=== PATIENT | female | born 1955 | race Caucasian/White ===

== ENCOUNTER 2019-11-22 06:54 | Outpatient (NON) | payer OTHER, SELFPAY ==
[2019-11-22 18:24] LABS: SARS-CoV-2 RNA PCR Negative
== END 2019-11-22 06:55 ==
PROVIDERS: PCP Family Medicine; Visit Provider Physician Assistant Medical
DX: Z20.828 Contact with and (suspected) exposure to other viral communicable diseases (principal)
CPT/HCPCS: 87635; C9803; U0003

== ENCOUNTER 2020-01-16 16:42 | Outpatient (CLI) | payer OTHER, SELFPAY ==
--- NOTE | ~2020-01-16 | MM_ITS ---
EXAMINATION: MM screening sulma BI w lan HISTORY: Screening mammogram TECHNIQUE: Craniocaudal and mediolateral oblique 3-D tomosynthesis images were obtained and synthetic 2-D images were generated. CAD analysis was submitted and interpreted. COMPARISON: 01/06/2019, 05/09/2016, 01/03/2015 bilateral digital screening mammogram examinations BREAST PARENCHYMAL COMPOSITION: There are scattered areas of fibroglandular density. FINDINGS: Stable mild fibroglandular asymmetry. There is no evidence of suspicious mass, calcificatio n, or architectural distortion to suggest malignancy in either breast. There has been no suspicious i nterval change. IMPRESSION: 1. No mammographic evidence of malignancy. 2. Recommend routine screening mammography in one year. BI-RADS Category 2: Benign finding(s). Reviewed, dictated and finalized at location A. INSPECTOR
== END 2020-01-16 16:43 | disposition home or self-care (01) ==
LOC: ANHIMG 16:45
PROVIDERS: PCP Family Medicine; Visit Provider Family Medicine
DX: Z12.31 Encounter for screening mammogram for malignant neoplasm of breast (principal)
CPT/HCPCS: 77063; 77067

== ENCOUNTER 2021-03-19 13:37 | Emergency (ER) | payer OTHER, SELFPAY ==
--- NOTE | ~2021-03-19 | CT_ITS ---
EXAMINATION: CT brain wo con DATE: 03/19/2021 16:46 INDICATION: Syncope. TECHNIQUE: Computed tomography (CT) of the head was performed without intravenous contrast. The mA wa s adjusted according to patient size. Iterative reconstruction technique was employed. The dose-lengt h product was 605.33 mGy-cm. COMPARISON: None FINDINGS: There is no intracranial hemorrhage, acute infarction, or abnormal intracranial mass lesion . The ventricles are normal in size. There is mild mucosal thickening in the paranasal sinuses. 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 There are small bilateral mastoid effusions. The orbits ar e normal. IMPRESSION: 1. Normal brain. Reviewed, dictated and finalized at location A. EL APPLIER IMPRESSION: 1. Normal brain.
--- NOTE | 2021-03-19 14:06 | ED.DIZZY ---
HPI - Dizziness General Chief Complaint: Dizziness Stated Complaint: VERTIGO Time Seen by Provider: 03/19/21 15:19 Source: patient Mode of arrival: ambulatory Limitations: no limitations History of Present Illness HPI Narrative: 55-year-old woman whose will comes to the emergency department complaining of vertiginous symptoms that started yesterday. She states that she was lying in a dentist's chair when her initial episode happened. She states that since then if she lies perfectly still her symptoms improved but get worse when she moves her head. She was seen at her primary care doctor's office today where head maneuvers to improve vertigo were done. Shortly afterwards she stood, began to have shaking in her hands, and passed out, falling to the floor. She was placed back on the bed and woke up shortly thereafter returning to normal sensorium quickly. She had urine incontinence. MD elicited complaint: dizziness and disequilibrium Onset (ago): day(s) (1) Timing: sudden onset and intermittent Severity: severe Description: sense of movement and room spinning Context: change in body position History of similar symptoms: No Exacerbating factors: movement/ambulation and change in body position Relieving factors: remaining still Associated symptoms: nausea and other (Headache) Associated neuro symptoms: diplopia Related Data Home Medications Medication Instructions Recorded Confirmed levothyroxine 50 mcg PO DAILY 03/19/21 03/19/21 Allergies Allergy/AdvReac Type Severity Reaction Status Date / Time No Known Allergies Allergy Mild Verified 03/19/21 14:19 Review of Systems Review of Systems: All systems reviewed & are unremarkable except as noted in HPI and below Constitutional: Constitutional: Denies chills and Denies fever(s) Eyes: Eyes: Reports change in vision (Intermittent diplopia) and Denies photophobia ENT: Denies nasal congestion and Denies sore throat Cardiovascular: Cardiovascular: Denies chest pain, Denies rapid heart rate and Denies radiating jaw, neck or arm pain Respiratory: Respiratory: Denies cough, Denies dyspnea and Denies wheezing Gastrointestinal: Gastrointestinal: Denies abdominal pain, Denies diarrhea, Reports nausea and Denies vomiting Genitourinary: Genitourinary: Denies hematuria, Denies nocturia and Denies dysuria Musculoskeletal: Musculoskeletal: Denies back pain, Denies arthralgias and Denies joint swelling Integumentary/Breasts: Skin/Breast: Denies pruritus, Denies erythema and Denies rash Neurologic: Denies confusion, Reports vertigo, Reports dizziness, Denies syncope, Reports headache(s), Denies focal weakness, Denies numbness and Denies weakness Hematologic/Lymphatic: Hematologic/Lymphatic: Denies easy bleeding and Denies easy bruising [facility] Past Medical History Medical History (Updated 03/19/21 @ 17:07 by Martinez Bhatia MD) Iliotibial band syndrome of right side Peroneal tendinitis of left lower extremity Sciatica, right side Spinal stenosis, unspecified region other than cervical Surgical History Surgical History (Updated 03/19/21 @ 17:04 by Martinez Bhatia MD) H/O cervical spine surgery Hx of colonoscopy 5 negative. repeat in 5 years Family History Family History Father Family history of congestive heart failure Carcinoma of colon, Onset Age: 80 Grandparent Diabetes mellitus Family history of glaucoma Mother Patient's mother is Social History Social History Smoking status: Former smoker Smoking end date: 02/23/88 Alcohol intake: current Exam Const: General: healthy appearing and alert Orientation/consciousness: patient oriented x3 Limitations: no limitations Other: Mild acute distress. HENMT: Head: normal to inspection Ears: TM's normal bilaterally, EAC's normal and external ear abnormal
[2021-03-19 14:20] VITALS: BP 146/95; PULSE 66; RESP 16; TEMP 36.2; O2SAT 100
[2021-03-19] MEDS: SODIUM CHLORIDE 0.9% IV 1,000 ML 999 ML IV CONT (15:46)
[2021-03-19] MEDS: ONDANSETRON INJ 4 MG/2 ML VIAL IV PUSH (15:47)
[2021-03-19 15:54] LABS: Basophils Absolute Auto 0.03 K/mm3 (0.00-0.10); Basophils Percent Auto 0.3 % (0.0-1.0); Eosinophils Absolute Auto 0.03 K/mm3 (0.02-0.50); Eosinophils Percent Auto 0.3 % (1.0-6.0); Hematocrit 43.2 % (35.0-49.0); Hemoglobin 14.3 g/dL (12.0-15.0); Immature Granulocyte Absolute 0.03 K/mm3 (0.00-0.00); Immature Granulocyte Percent A 0.3 % (0.0-0.0); Lymphocytes Absolute Auto 1.19 K/mm3 (1.10-4.50); Lymphocytes Percent Auto 13.7 % (18.0-42.0); Mean Corpuscular HGB Conc 33.1 g/dL (32.0-36.0); Mean Corpuscular Volume 90.6 fL (78.0-102.0); Mean Platelet Volume 8.8 fl (9.2-11.8); Monocytes Absolute Auto 0.46 K/mm3 (0.10-0.90); Monocytes Percent Auto 5.3 % (2.0-11.0); Neutrophils Absolute Auto 6.9 K/mm3 (1.7-7.2); Neutrophils Percent Auto 80.1 % (50.0-70.0); Platelet Count Result 259 K/mm3 (150-420); Red Blood Count 4.77 M/mm3 (4.20-5.40); Red Cell Distribution Width 11.9 % (11.6-14.4); White Blood Count 8.7 K/mm3 (4.8-10.8)
[2021-03-19 16:09] LABS: Alanine Aminotransferase 21 U/L (14-59); Albumin Level 4.1 g/dL (3.4-5.0); Alkaline Phosphatase 49 U/L (46-116); Anion Gap 8 mmol/L (8-16); Aspartate Amino Transferase 13 U/L (15-37); Bilirubin,Total 0.4 mg/dL (0.00-1.00); Blood Urea Nitrogen 11 mg/dL (7-18); Calcium 9.4 mg/dL (8.5-10.1); Carbon Dioxide 29 mmol/L (21-32); Chloride 103 mmol/L (98-108); Estimated CRCL calculation 72 ml/min; Estimated Glomerular Filt Rate > 60; Glucose 121 mg/dL (70-99); Magnesium 2.1 mg/dL (1.8-2.4); Osmolality Calculated 290 mOsm/kg (285-295); Sodium 140 mmol/L (136-145); Total Protein 7.5 g/dL (6.4-8.2)
[2021-03-19 17:52] VITALS: BP 147/87; PULSE 70; RESP 16; O2SAT 97
== END 2021-03-19 17:53 | disposition home or self-care (01) ==
PROVIDERS: Emergency Provider Emergency Medicine; PCP Family Medicine
DX: R42 Dizziness and giddiness (principal)
CPT/HCPCS: 36415; 70450; 80053; 83735; 85025; 96361; 96374; 99283; 99284; J2405; J7030

== ENCOUNTER 2022-12-18 14:17 | Outpatient (CLI) | payer BC, SELFPAY ==
--- NOTE | ~2022-12-18 | MM_ITS ---
EXAMINATION: MM screening sulma BI w lan HISTORY: Screening mammogram TECHNIQUE: Craniocaudal and mediolateral oblique 3-D tomosynthesis images were obtained and synthetic 2-D images were generated. CAD analysis was submitted and interpreted. COMPARISON: 01/12/2020, 01/06/2019 bilateral screening mammogram examinations BREAST PARENCHYMAL COMPOSITION: There are scattered areas of fibroglandular density. FINDINGS: There is no evidence of suspicious mass, calcification, or architectural distortion to sugg est malignancy in either breast. There has been no suspicious interval change. IMPRESSION: 1. No mammographic evidence of malignancy. 2. Recommend routine screening mammography in one year. BI-RADS Category 1: Negative Reviewed, dictated and finalized at location A.
== END 2022-12-18 14:18 | disposition home or self-care (01) ==
LOC: ANHIMG 14:21
PROVIDERS: PCP Family Medicine; Visit Provider Family Medicine
DX: Z12.31 Encounter for screening mammogram for malignant neoplasm of breast (principal)
CPT/HCPCS: 77063; 77067

== ENCOUNTER 2023-02-09 17:12 | Emergency (ER) | payer BC, SELFPAY ==
[2023-02-09 17:18] VITALS: BP 154/94; PULSE 81; RESP 16; TEMP 36.6; O2SAT 100
--- NOTE | 2023-02-09 17:24 | ED.GENADULT ---
HPI - General Adult General Chief complaint: Syncope Stated complaint: Fainted;Seizure; Time Seen by Provider: 02/09/23 17:25 Source: patient, RN notes reviewed and old records reviewed Mode of arrival: ambulatory Limitations: no limitations History of Present Illness HPI narrative: 67-year-old female presents to the [facility] with feeling of about to pass out or have a seizure. Had an episode last week where she did pass out when she was out with friends and had seizure-like activity, EMS was called but they declined transport at that time. Has a history of vertigo. Nov of this year Reports Dr. Simon tried to do a maneuver and she had a seizure, transproted to the ER at that time. Has gone to physical therapy at [facility] for vertigo. Patient states that tonight she got dizzy, after feeling dizzy developed numbness in her upper extremities. Patient reports this time it feels different due to the numbness in her arms Treatments prior to arrival: none Related Data Allergies Allergy/AdvReac Type Severity Reaction Status Date / Time No Known Allergies Allergy Mild Verified 10/15/22 14:32 Review of Systems Review of Systems: All systems reviewed & are unremarkable except as noted in HPI and below Constitutional: Constitutional: Reports no additional constitutional complaints Eyes: Eyes: Reports no additional eye complaints ENT: Reports system reviewed and no additional complaints, except as documented Cardiovascular: Cardiovascular: Reports no additional cardiovascular complaints, Denies chest pain and Denies dyspnea Respiratory: Respiratory: Reports no additional respiratory complaints, Denies chest congestion, Denies cough and Denies dyspnea Gastrointestinal: Gastrointestinal: Reports no additional gastrointestinal complaints, Denies abdominal pain, Denies nausea and Denies vomiting Musculoskeletal: Musculoskeletal: Reports no additional musculoskeletal complaints Integumentary/Breasts: Skin/Breast: Reports system reviewed and no additional complaints, except as docu Neurologic: Reports as per HPI, Reports vertigo, Reports dizziness, Reports syncope (Near syncopal), Reports seizure-like activity (Last week), Reports tingling (Bilateral arms, decreased sensation) and Denies weakness Psychiatric: Psychiatric: Reports no additional psychiatric complaints Allergic/Immunologic: Allergic/Immunologic: Reports no additional allergic/immunologic complaints PMFSH Past Medical History Medical History Iliotibial band syndrome of right side Olecranon bursitis of right elbow Peroneal tendinitis of left lower extremity Sciatica, right side Surgical History Surgical History H/O cervical spine surgery Hx of colonoscopy 5 negative. repeat in 5 years Family History Family History Father Family history of congestive heart failure Carcinoma of colon, Onset Age: 80 Grandparent Diabetes mellitus Family history of glaucoma Mother Patient's mother is Social History Social History Smoking packs per day: 0.1 Smoking cigarettes per day: 2.0 Years smoked: 8 Smoking pack-years: 0.80 Smoking status: Former smoker Smoking end date: 02/23/88 Alcohol intake: current Substance use: never Substance use type: does not use Lack of Transportation: No Lack of Food: Never True Current Housing: I Have Housing Concerned About Future Housing: No Difficulty Paying Gas/Electric Bills: No Difficulty Paying for Meds: No Currently Unemployed: No Education: Master's Degree or Higher Difficulty w/ Childcare or Family Care: No Comments At the time of my signature, I reviewed and agree with the nursing past medical, surgical, social, and family history. There is no relevan
== END 2023-02-09 17:46 | disposition short-term general hospital (02) ==
LOC: EXPGOSH 17:14
PROVIDERS: Emergency Provider Nurse Practitioner; PCP Family Medicine
DX: R42 Dizziness and giddiness (principal); Z87.891 Personal history of nicotine dependence
CPT/HCPCS: 99215; G0463

== ENCOUNTER 2023-02-09 18:11 | Emergency (ER) | payer BC, SELFPAY ==
[2023-02-09] VITALS (11 sets, daily range): BP systolic 92–153; BP diastolic 73–99; PULSE 64–85; RESP 17–24; TEMP 36.4; O2SAT 99–100
--- NOTE | ~2023-02-09 | CT_ITS ---
EXAMINATION: CT brain wo con DATE: 02/09/2023 20:54 INDICATION: Syncope. TECHNIQUE: Computed tomography (CT) of the head was performed without intravenous contrast. The mA wa s adjusted according to patient size. Iterative reconstruction technique was employed. The dose-lengt h product was 605.33 mGy-cm. COMPARISON: Head CT 03/19/2021 FINDINGS: There is no intracranial hemorrhage, acute infarction, or abnormal intracranial mass lesion . The ventricles are normal in size. There is mild mucosal thickening in the paranasal sinuses. There is a small left mastoid effusion. IMPRESSION: 1. Normal brain. Reviewed, dictated and finalized at location E. L MANAGER IMPRESSION: 1. Normal brain.
--- NOTE | ~2023-02-09 | XR_ITS ---
EXAMINATION: XR chest 1V portable DATE: 02/09/2023 21:17 INDICATION: Syncope. Nausea. TECHNIQUE: A single frontal view of the chest was obtained. COMPARISON: None. FINDINGS: There is no pneumonia, pleural effusion, or pneumothorax. The heart size is normal. There a re changes of anterior fusion procedure in cervical spine. IMPRESSION: 1. No acute cardiopulmonary disease. Reviewed, dictated and finalized at location E. GER INTERNET
--- NOTE | 2023-02-09 20:34 | ECG_ITS ---
Measurements Intervals [place] Rate: 71 P: 41 RI: 151 QRS: 23 QRSD: 93 T: 31 QT: 369 QTc: 404 Interpretive Statements SINUS RHYTHM BASELINE ARTIFACT POSSIBLE LEFT ATRIAL ENLARGEMENT [-0.1mV P WAVE IN V1/V2] BORDERLINE ECG NO PREVIOUS ECG AVAILABLE FOR COMPARISON Electronically Signed On 02-10-2023 15:32:53 SCIENTIFIC ILLUSTRATOR by Quinton Nunez M.D.
[2023-02-09 21:33] LABS: Basophils Percent Auto 0.4 % (0.2-1.2); Eosinophils Absolute Auto 0.1 K/mm3 (0-0.3); Eosinophils Percent Auto 0.8 % (0-4.4); Hematocrit 37.5 % (37.0-47.0); Hemoglobin 12.5 g/dL (12.0-15.0); Immature Granulocyte Absolute 0.02 K/mm3 (0.00-0.031); Immature Granulocyte Percent A 0.3 % (0-0.5); Lymphocytes Absolute Auto 1.82 K/mm3 (0.9-3.2); Lymphocytes Percent Auto 22.8 % (18.3-44.2); Mean Corpuscular HGB Conc 33.3 g/dl (32-36); Mean Corpuscular Hemoglobin 29.5 pg (26-34); Mean Corpuscular Volume 88.4 fl (80-100); Mean Platelet Volume 8.9 fl (7.4-10.4); Monocytes Absolute Auto 0.5 K/mm3 (0.1-0.6); Monocytes Percent Auto 5.8 % (2.6-8.5); Neutrophils Absolute Auto 5.6 K/mm3 (1.3-6.7); Neutrophils Percent Auto 69.9 % (45.5-73.1); Platelet Count Result 264 k/mm3 (150-375); Red Blood Count 4.24 M/mm3 (4.2-5.4); Red Cell Distribution Width 11.6 % (11.5-14.5)
--- NOTE | 2023-02-09 21:36 | ECG_ITS ---
Measurements Intervals [place] Rate: 67 P: 38 WV: 156 QRS: 32 QRSD: 86 T: 34 QT: 395 QTc: 419 Interpretive Statements SINUS RHYTHM BASELINE ARTIFACT POSSIBLE LEFT ATRIAL ENLARGEMENT [-0.1mV P WAVE IN V1/V2] BORDERLINE ECG COMPARED TO ECG 02/09/2023 17:35:35 NO SIGNIFICANT CHANGES Electronically Signed On 02-10-2023 15:38:08 WOOD EXPERIMENTAL MECHANIC by Quinton Nunez M.D.
[2023-02-09 21:42] LABS: Alanine Aminotransferase 15 U/L (6-35); Albumin Level 4.1 g/dL (3.5-5.1); Alkaline Phosphatase 54 U/L (38-126); Anion Gap 8 mmol/L (8-16); Aspartate Amino Transferase 22 U/L (14-36); Bilirubin,Total 0.4 mg/dL (0.2-1.3); Blood Urea Nitrogen 13 mg/dL (7-17); Calcium 9.4 mg/dL (8.4-10.2); Carbon Dioxide 26 mmol/L (22-30); Chloride 105 mmol/L (98-107); Estimated CRCL calculation 93 ml/min; Estimated Glomerular Filt Rate > 60; Glucose 107 mg/dL (65-110); Potassium 4.2 mmol/L (3.4-5.0); Prothrombin Time 13.5 Seconds (11.1-14.7); Sodium 139 mmol/L (137-145)
[2023-02-09 21:43] LABS: Partial Thromboplastin Time 23.2 SECONDS (22.3-36.8)
[2023-02-09 21:46] LABS: Lactic Acid Reflex 0.9 mmol/L (0.7-2.0)
[2023-02-09 21:50] LABS: Appearance Urine Clear (Clear); Bacteria Urine None Seen /hpf; Bilirubin Urine Negative (Negative); Blood Urine Negative (Negative); Color Urine Yellow (Yellow); Glucose Urine UA Negative (Negative); Ketones Urine Negative (Negative); Leukocyte Esterase Ur 2+ LEU/UL (Negative); Nitrate Urine Negative (Negative); Non Pathogenic Casts 0-2; Protein Urine Negative (Negative); RBC Urine 0-2 /hpf (0-2); Specific Grav Ur 1.003 (1.001-1.035); Squamous Epithelial Cell Urine None seen /hpf (Few); Urobilinogen Urine 0.2 mg/dL (<2.0)
[2023-02-09 21:51] LABS: Troponin I < 0.012 ng/mL (0.000-0.034)
[2023-02-09 21:51] LABS: Add Urine Microscopic? YES
[2023-02-09 21:54] LABS: D Dimer 0.36 ug/mL (<0.48)
[2023-02-09] MEDS: SODIUM CHLORIDE 0.9% IV 1,000 ML 999 ML IV CONT (21:56)
--- NOTE | 2023-02-09 22:30 | ED.GENADULT ---
HPI - General Adult General Chief complaint: Syncope Stated complaint: syncope Time Seen by Provider: 02/09/23 20:22 History of Present Illness HPI narrative: patient is a 67-year-old female who presents to emergency department with chief complaint of syncopal episode. The patient reports that she had an episode last week while she was with her friends eating dinner the patient reports that today she started feeling tingly and felt as though she was going to pass out felt lightheaded. Patient denies chest pain denies actually passing out today denies abdominal pain Related Data Allergies Allergy/AdvReac Type Severity Reaction Status Date / Time No Known Allergies Allergy Mild Verified 10/15/22 14:32 Review of Systems Review of Systems: A 10 system review of systems was completed on the patient and is negative except for what is stated in the HPI. Nursing and ancillary documentation was reviewed. PMFSH Past Medical History Medical History Iliotibial band syndrome of right side Olecranon bursitis of right elbow Peroneal tendinitis of left lower extremity Sciatica, right side Surgical History Surgical History H/O cervical spine surgery Hx of colonoscopy 5.24.21 negative. repeat in 5 years Family History Family History Father Family history of congestive heart failure Carcinoma of colon, Onset Age: 80 Grandparent Diabetes mellitus Family history of glaucoma Mother Patient's mother is Social History Social History Smoking packs per day: 0.1 Smoking cigarettes per day: 2.0 Years smoked: 8 Smoking pack-years: 0.80 Smoking status: Former smoker Smoking end date: 02/23/88 Alcohol intake: current Substance use: never Substance use type: does not use Lack of Transportation: No Lack of Food: Never True Current Housing: I Have Housing Concerned About Future Housing: No Difficulty Paying Gas/Electric Bills: No Difficulty Paying for Meds: No Currently Unemployed: No Education: Master's Degree or Higher Difficulty w/ Childcare or Family Care: No Exam Narrative: GENERAL: Well-appearing, well-nourished, and in no acute distress. HEAD: Normocephalic, atraumatic. EYES: PERRLA and EOMI. ENT: Nares clear, no rhinorrhea or epistaxis. Mucous membranes moist. NECK: Supple. CHEST: Clear to auscultation. No respiratory distress. HEART: Regular rate and rhythm. No murmur heard. Normal peripheral pulses. ABDOMEN: Soft, nontender, nondistended, normal active bowel sounds. EXTREMITIES: Normal range of motion. No edema. SKIN: Warm, dry, no rash. NEURO: No focal deficits. Alert and oriented x3. PSYCH: Normal mood and affect. Course Vital Signs Vital signs: Vital Signs Temperature 36.4 C L 02/09/23 18:17 Pulse Rate 78 02/09/23 18:17 Respiratory Rate 20 02/09/23 18:17 Blood Pressure 146/85 H 02/09/23 18:17 Pulse Oximetry 100 02/09/23 18:17 Oxygen Delivery Room Air 02/09/23 18:17 Temperature 36.4 C L 02/09/23 18:17 Pulse Rate 85 02/09/23 21:46 Respiratory Rate 20 02/09/23 18:17 Blood Pressure 153/81 H 02/09/23 21:46 Pulse Oximetry 100 02/09/23 18:17 Oxygen Delivery Room Air 02/09/23 18:17 Medical Decision Making [facility] Narrative Medical decision making narrative: differential diagnosis includes electrolyte abnormality, dysrhythmia, UTI, CVA, ACS EKG showed no acute ischemic changes no evidence of dysrhythmia. Laboratory studies were obtained which showed normal CBC normal CMP troponin was negative D-dimer was negative lactic acid was 0.8 magnesium was 2.0 urinalysis showed 6-10 white blood cells and 2+ leukocyte esterase Vital Signs Vital Signs: Penny
[2023-02-09 23:22] LABS: Procalcitonin < 0.0 ng/mL
== END 2023-02-09 23:03 | disposition home or self-care (01) ==
PROVIDERS: Emergency Provider Emergency Medicine; PCP Family Medicine
DX: N39.0 Urinary tract infection, site not specified (principal); R55 Syncope and collapse
CPT/HCPCS: 36415; 70450; 71045; 80053; 81001; 83605; 83735; 84145; 84484; 85025; 85380; 85610; 85730; 87086; 87088; 93005; 96360; 99284; J7030

== ENCOUNTER 2023-03-02 08:33 | Outpatient (CLI) | payer OTHER, SELFPAY ==
--- NOTE | 2023-03-02 08:40 | ECHO_ITS ---
Patient Info Name: Purnima Gonzalez Age: 67 years : 1955 Gender: Female Ht: 68 in Wt: 168 lbs BSA: 1.92 m2 HR: 68 bpm BP: 126 / 82 mmHg Technical Quality: Good Exam Date: 03/02/2023 8:52 AM Exam Location: Echo Lab Patient Status: Outpatient Admit Date: 03/02/2023 Staff Ordering Physician: Rhina Simon MD Attending Provider: Rhina Simon MD Referring Physician: Alfred TORREZ; Exam Type: CA echo doppler color flow Study Info Indications R55 - Syncope and collapse Complete two-dimensional, color flow and Doppler transthoracic echocardiogram is performed. Summary 1. Complete two-dimensional, color flow and Doppler transthoracic echocardiogram is performed. 2. Left ventricular chamber dimension is normal. 3. Left ventricular systolic function is normal, estimated at 60-65%. 4. The left ventricular diastolic function is grade I diastolic dysfunction. 5. E/e' 11 is mildly elevated. 6. There is trace tricuspid valve regurgitation. 7. No pulmonary hypertension, estimated pulmonary arterial systolic pressure is 20 mmHg. Left Ventricle E/e' 11 is mildly elevated. Left ventricular chamber dimension is normal. Left ventricular systolic function is normal, estimated at 60-65%. The left ventricular diastolic function is grade I diastolic dysfunction. Right Ventricle Right ventricular systolic function is normal and with normal TAPSE 1.8 cm. Right ventricular chamber dimension is normal. Left Atria Left atrial chamber dimension is normal. Right Atria Right atrial chamber dimension is normal. Aortic Valve The aortic valve is trileaflet. There is no aortic valve stenosis. There is no aortic valve regurgitation. Pulmonic Valve There is no pulmonic regurgitation. Mitral Valve There is no mitral valve stenosis. There is no mitral valve regurgitation. Tricuspid Valve There is trace tricuspid valve regurgitation. No pulmonary hypertension, estimated pulmonary arterial systolic pressure is 20 mmHg. Pericardium/Pleural There is no pericardial effusion. Inferior Vena Cava Normal inferior vena cava with >50% collapse upon inspiration consistent with normal right atrial pressure, 5 mmHg. Aorta The aortic root size at the sinus of Valsalva is normal. Left Ventricular Outflow Tract Name Value Normal LVOT 2D LVOT Diameter 2.1 cm LVOT Doppler LVOT Peak Gradient 5 mmHg LVOT Mean Gradient 2 mmHg LVOT VTI 24 cm LVOT VTI/AV VTI Ratio 0.7 LVOT Stroke Volume 81 ml LVOT CO 4.8 l/min LVOT CI 2.5 l/min/m2 Pulmonic Valve Name Value Normal PV Doppler PV Peak Gradient 2 mmHg Mitral Valve Name Value Normal
== END 2023-03-02 08:34 | disposition home or self-care (01) ==
PROVIDERS: PCP Family Medicine; Visit Provider Family Medicine
DX: R56.9 Unspecified convulsions (principal); I07.1 Rheumatic tricuspid insufficiency; R93.1 Abnormal findings on diagnostic imaging of heart and coronary circulation
CPT/HCPCS: 93306

== ENCOUNTER 2023-04-24 09:05 | Emergency (ER) | payer OTHER, SELFPAY ==
[2023-04-24 09:17] VITALS: BP 128/84; PULSE 78; RESP 16; TEMP 36.3; O2SAT 100
--- NOTE | 2023-04-24 09:47 | ED.FEMALEGU ---
HPI - Female Genitourinary General Chief complaint: Urogenital-Female Stated complaint: Uti symptoms Time Seen by Provider: 04/24/23 09:30 Source: patient and RN notes reviewed Mode of arrival: ambulatory Limitations: no limitations History of Present Illness HPI Narrative: Patient presents today with a 2 day history of dysuria, urinary frequency, and malodorous urine. Denies hematuria, fever, back pain, abdominal pain. She leaves on a trip on a train tomorrow. She was diagnosed with the UTI in January in the ER after a syncopal episode, but review of her urine culture shows less than 10,000 colonies and a C&S was not run. Related Data Home Medications Medication Instructions Recorded Confirmed mupirocin 2 % topical ointment 1 applic topical DAILY 04/24/23 04/24/23 Allergies Allergy/AdvReac Type Severity Reaction Status Date / Time No Known Allergies Allergy Mild Verified 04/24/23 09:29 Review of Systems Review of Systems: CONSTITUTIONAL: Denies body aches, fever, chills, or sweats. EYES: Denies visual changes, redness, or discharge. ENT: Denies rhinorrhea, congestion, sore throat, or otalgia. CARDIOVASCULAR: Denies chest pain, palpitations, or edema. RESPIRATORY: Denies cough or dyspnea. GASTROINTESTINAL: Denies abdominal pain, nausea, vomiting, or diarrhea. GENITOURINARY: + dysuria, frequency, malodorous urine. SKIN: Denies rash, itching, or wounds. MUSCULOSKELETAL: Denies back pain, joint pain, or myalgia. NEUROLOGIC: Denies headache, numbness, tingling, or weakness. PSYCH: Denies depression or anxiety. [facility] Past Medical History Medical History Iliotibial band syndrome of right side Olecranon bursitis of right elbow Peroneal tendinitis of left lower extremity Sciatica, right side Surgical History Surgical History H/O cervical spine surgery Hx of colonoscopy 5.24.21 negative. repeat in 5 years Family History Family History Father Family history of congestive heart failure Carcinoma of colon, Onset Age: 80 Grandparent Diabetes mellitus Family history of glaucoma Mother Patient's mother is Social History Social History Smoking packs per day: 0.1 Smoking cigarettes per day: 2.0 Years smoked: 8 Smoking pack-years: 0.80 Smoking status: Former smoker Smoking end date: 02/23/88 Alcohol intake: current Drinks per week: 7 Substance use: former Substance use type: marijuana Last use: gummies to help sleep, did not help so stopped Do You Feel Safe in your Home?: Yes Lack of Transportation: No Lack of Food: Never True Current Housing: I Have Housing Concerned About Future Housing: No Difficulty Paying Gas/Electric Bills: No Difficulty Paying for Meds: No Currently Unemployed: No Education: Master's Degree or Higher Difficulty w/ Childcare or Family Care: No Comments At time of signature, I have reviewed and agree with nursing past medical, surgical, social and family history unless otherwise noted. Please see nursing chart for further information. There is no relevant family history pertinent to the presenting complaint Exam Narrative: GENERAL: Well-appearing, well-nourished, and in no acute distress. HEAD: Normocephalic, atraumatic. EYES: EOMI. No redness or drainage. Conjunctivae normal. ENT: Mucous membranes pink and moist. NECK: Normal AROM. CHEST: No respiratory distress. EXTREMITIES: Normal range of motion. No edema. SKIN: Warm, dry, no rash. Capillary refill normal. NEURO: No focal deficits. Alert and oriented x3. Gait steady. PSYCH: Normal affect. No signs of depression or anxiety. Course Course Level of Care: Express Care Visit Vital Signs Vital signs:
== END 2023-04-24 09:57 | disposition home or self-care (01) ==
PROVIDERS: Emergency Provider Nurse Practitioner; PCP Family Medicine
DX: N30.01 Acute cystitis with hematuria (principal); Z87.891 Personal history of nicotine dependence
CPT/HCPCS: 81003; 87086; 87880; 99213; G0463

== ENCOUNTER 2023-05-20 13:54 | Outpatient (CLI) | payer OTHER, SELFPAY ==
--- NOTE | ~2023-05-20 | DEXA_ITS ---
Bone Density Report Name: KRISS STAPLES Age: 67 Sex: Female Ethnicity: White Date of : 1955 Indication: postmenopausal; screening for osteoporosis; parental hip fracture; Referring Provider: VICTOR HUGO BETTENCOURT Study: Bone densitometry was performed. Exam Date: May 20, 2023 Accession number: [id number] Bone Density: Region BMD T-score Z-score Classification AP Spine(L1-L4) 1.020 -0.2 1.6 Normal Femoral Neck (Left) 0.824 -0.2 1.4 Normal Total Hip (Left) 0.902 -0.3 1.0 Normal Femoral Neck (Right) 0.806 -0.4 1.2 Normal Total Hip (Right) 0.923 -0.2 1.2 Normal Total Hip Mean 0.913 -0.3 1.1 Normal World Health Organization criteria for BMD impression classify patients as: Normal (T-score at or above -1.0), Osteopenia (T-score between -1.0 and -2.5), or Osteoporosis (T-score at or below -2.5). 10-year Fracture Risk: FRAX not reported because: All T-scores for Spine Total, Hip Total, Femoral Neck at or above -1.0 Clinical Information Provided by Patient: Parent has had a hip fracture Has used the following medications: Vitamin D, Calcium Patient maximum height was 68 Menopause Age: 54 Drinks caffeinated beverages Onset of menses at age 17 Number of children 3 Impression: The patient has normal bone mass. The patient has risk factors, including: parental hip fracture. Discussion: BONE DENSITY IS ABOVE THE MINIMUM DESIRABLE LEVEL AT ALL SKELETAL SITES TESTED. This patient?s bone mineral density is above the minimum desirable level (T-score -1.0 or better) at all sites measured. The patient should follow a healthful lifestyle (good nutrition with adequate calcium and vitamin D, and appropriate weight-bearing exercise). Follow-Up: Consider repeating this study in 5 years or sooner if there is some new clinical indication. Reported by: AMY on 05/20/2023 3:36:00 PM. Reviewed, dictated and finalized at location William MEANS
== END 2023-05-20 13:55 | disposition home or self-care (01) ==
PROVIDERS: PCP Family Medicine; Visit Provider Family Medicine
DX: M81.0 Age-related osteoporosis without current pathological fracture (principal)
CPT/HCPCS: 77080

== ENCOUNTER 2023-10-20 07:54 | Outpatient (CLI) | payer OTHER, SELFPAY | END 2023-10-20 07:55 | disposition home or self-care (01) | LOC: ANHAUDASC 07:55 | PROVIDERS: PCP Family Medicine; Visit Provider Psychiatry & Neurology Neurology | DX: R55 Syncope and collapse (principal); R56.9 Unspecified convulsions; R42 Dizziness and giddiness | CPT/HCPCS: 92557; 92567 ==

== ENCOUNTER 2023-10-29 08:36 | Outpatient (CLI) | payer OTHER, SELFPAY ==
--- NOTE | 2023-10-31 13:49 | WPDNEUROLOGY ---
Neurology EEG Report General Information Date of Study: 10/29/23 TEST eeg DIAGNOSIS loss of consciousness CONDITION OF RECORDING awake drowsiness and asleep EEG NUMBER [id number] CLINICAL HISTORY patient reports for the last 2 years she has episodes of extreme vertigo and sometimes loss of consciousness. EEG DESCRIPTION Background rhythm consists of low-voltage 15 to 21 hertz per 2nd beta activity during drowsiness with poor miriam posterior gradient. Bilateral normal and symmetrical sleep activity seen with normal and symmetrical sleep spindles as well. Photic stimulation produced normal drive. Hyperventilation not done. Non paroxysmal. Nonfocal. Nonlateralizing. IMPRESSION Normal record
== END 2023-10-29 08:37 | disposition home or self-care (01) ==
PROVIDERS: PCP Family Medicine; Visit Provider Psychiatry & Neurology Neurology
DX: R55 Syncope and collapse (principal)
CPT/HCPCS: 95816

== ENCOUNTER 2024-06-15 21:02 | Emergency (ER) | payer OTHER, SELFPAY ==
--- NOTE | ~2024-06-15 | CT_ITS ---
History: Syncope PROCEDURE: CT head without contrast. COMPARISON: None 02/09/2023 TECHNIQUE: Axial imaging of the head performed from the skull base to the vertex without IV contrast. Sagittal a nd coronal reformations obtained. DLP: 681 mGy-cm FINDINGS: The ventricles are normal in size, shape and position. There is no mass, mass effect or midline shift. There is no abnormal extra-axial fluid collection or intracranial hemorrhage. Visualized paranasal sinuses are clear. The mastoid air cells are well aerated. No acute displaced fractures within the overlying cranium. Impression: No acute intracranial hemorrhage or suspicious mass effect. Reviewed, dictated and finalized at location A. Impression: No acute intracranial hemorrhage or suspicious mass effect.
--- NOTE | ~2024-06-15 | CT_ITS ---
EXAMINATION: CTA chest abdomen pelvis DATE: 06/15/2024 23:27 CDT INDICATION: Syncope TECHNIQUE: Computed tomographic angiography (CTA) of the chest was performed, along with multiple con tiguous axial images of the abdomen and pelvis with 100 mL Omnipaque-350 intravenous contrast. The do se-length product was 903.97 mGy-cm. Maximum intensity projection 3D-reconstructions of the aorta and other arteries were constructed by the technologist on a separate workstation. FINDINGS/OBSERVATIONS: PULMONARY ARTERIES: No filling defect is identified within the main or proximal pulmonary artery. The main pulmonary artery is not enlarged. THORACIC AORTA: No aneurysmal dilatation or dissection is present. The great vessels are intact LUNGS: Interstitial thickening is detected bilaterally, with bibasilar atelectasis. MEDIASTINUM: No morphologically suspicious or pathologically enlarged lymph nodes are identified with in the mediastinum or bilateral axilla. BONES OF THE CHEST: No acute fracture. No significant degenerative disease. No lytic or blastic lesions. HEART: The heart is of normal size, without pericardial effusion. LIVER: Multiple well-circumscribed foci of fluid attenuation are identified within the liver, for which simp le cysts are suspected. The remainder of the liver enhances homogeneously and is not enlarged. GALLBLADDER AND BILIARY SYSTEM: The gallbladder is only minimally distended, and otherwise unremarkable. PANCREAS: The pancreas enhances homogeneously without ductal dilatation. SPLEEN: The spleen enhances homogeneously and is not enlarged. KIDNEYS: The bilateral kidneys enhance symmetrically without hydronephrosis or renal calculi. ADRENAL GLANDS: Unremarkable. GASTROINTESTINAL TRACT: Significant fluid distention of the stomach. A large amount of air is identified within the rectum. APPENDIX: The air-filled appendix is of normal caliber (axial series, images 181 through 196) VASCULATURE: No aneurysmal dilatation or significant stenosis. LYMPH NODES: No pathologically enlarged or morphologically suspicious lymph nodes within the retroperitoneum or at the root of the mesentery. PELVIC STRUCTURES: The bladder is only minimally distended, and otherwise unremarkable. The uterus is anteverted and retroflexed. A well-circumscribed focus of fat attenuation is identified within the left hemipelvis measuring 5.7 x 5.5 x 5.3 cm consistent with a dermoid cyst. BODY WALL AND MUSCULOSKELETAL: Small fat-containing umbilical hernia. Age-appropriate degenerative disease within the thoracic and lumbosacral spines. IMPRESSION: No pulmonary embolus. No aortic dissection. Interstitial thickening with bibasilar atelectasis. Significant fluid distention of the stomach. Dermoid cyst within the left hemipelvis. No acute findings within the chest, abdomen or pelvis, as detailed above. Reviewed, dictated and finalized at location A.
--- NOTE | ~2024-06-15 | XR_ITS ---
CHEST RADIOGRAPH CLINICAL HISTORY: syncopal episode, vertigo . COMPARISON: 02/09/2023 TECHNIQUE: Single portable view of the chest. FINDINGS The cardiomediastinal silhouette is unremarkable. Increased interstitial markings are identified bilaterally, findings suggesting mild pulmonary vascul ar congestion. The remainder of lungs are clear. IMPRESSION: Mild pulmonary vascular congestion, without focal infiltrate or effusion. Reviewed, dictated and finalized at location A.
[2024-06-15 20:59] VITALS: BP 128/74; PULSE 59; RESP 16; TEMP 36.6; O2SAT 100
--- NOTE | 2024-06-15 21:04 | ECG_ITS ---
Test Date: 2024-06-15 21:05:10 Measurements Intervals [place] Rate: 60 P: 53 IA: 163 QRS: 43 QRSD: 94 T: 41 QT: 426 QTc: 428 Interpretive Statements SINUS RHYTHM POSSIBLE LEFT ATRIAL ENLARGEMENT BASELINE ARTIFACT- I, II, III, AVR, AVL, AVF BORDERLINE ECG No previous ECG available for comparison Electronically Signed On 06-16-2024 07:07:22 CDT by Woo Guerra D.O.
[2024-06-15 21:09] VITALS: O2SAT 100
[2024-06-15 21:10] VITALS: PULSE 59
[2024-06-15 21:37] LABS: Basophils Percent Auto 0.5 % (0.2-1.2); Eosinophils Absolute Auto 0.1 K/mm3 (0-0.3); Eosinophils Percent Auto 1.3 % (0-4.4); Hematocrit 36.5 % (37.0-47.0); Hemoglobin 12.3 g/dL (12.0-15.0); Immature Granulocyte Absolute 0.02 K/mm3 (0.00-0.031); Immature Granulocyte Percent A 0.3 % (0-0.5); Lymphocytes Absolute Auto 2.07 K/mm3 (0.9-3.2); Lymphocytes Percent Auto 32.3 % (18.3-44.2); Mean Corpuscular HGB Conc 33.7 g/dl (32-36); Mean Corpuscular Hemoglobin 29.5 pg (26-34); Mean Corpuscular Volume 87.5 fl (80-100); Mean Platelet Volume 8.8 fl (7.4-10.4); Monocytes Absolute Auto 0.6 K/mm3 (0.1-0.6); Monocytes Percent Auto 8.8 % (2.6-8.5); Neutrophils Absolute Auto 3.6 K/mm3 (1.3-6.7); Neutrophils Percent Auto 56.8 % (45.5-73.1); Platelet Count Result 221 k/mm3 (150-375); Red Blood Count 4.17 M/mm3 (4.2-5.4); Red Cell Distribution Width 12.2 % (11.5-14.5); White Blood Count 6.4 K/mm3 (4.5-10.0)
[2024-06-15 21:46] LABS: Alanine Aminotransferase 16 U/L (6-35); Albumin Level 3.9 g/dL (3.5-5.1); Alkaline Phosphatase 47 U/L (38-126); Anion Gap 10 mmol/L (4-12); Aspartate Amino Transferase 19 U/L (14-36); Bilirubin,Total 0.3 mg/dL (0.2-1.3); Blood Urea Nitrogen 17 mg/dL (7-17); Calcium 8.5 mg/dL (8.4-10.2); Carbon Dioxide 26 mmol/L (22-30); Chloride 105 mmol/L (98-107); Estimated CRCL calculation 55 ml/min; Estimated Glomerular Filt Rate > 60; Glucose 117 mg/dL (65-110); Potassium 3.6 mmol/L (3.4-5.0); Sodium 141 mmol/L (137-145)
--- OUTSIDE RECORDS SUMMARY | 2024-06-15 21:52 | XMS_ITS | Referral Summary ---
Author Organization [facility] Address [address] [place] [address] Care Team Providers Care Head Housekeeper Name Role Phone Rhina Simon MD Primary Care Provider + Krysta Del Rio DPM Unavailable [phone] Allergies No known active allergies Medications levothyroxine (SYNTHROID) 50 mcg tablet Take 1 tablet (50 mcg total) by mouth daily 05/04/2020 Active cholecalciferol (VITAMIN D-3) 1,000 unit capsule Take by mouth daily Active ascorbic acid/collagen hydr (COLLAGEN SKIN RENEWAL ORAL) Take by mouth daily Active UNABLE TO FIND as needed Med Name: Андрей Active Active Problems Problem Noted Date Diagnosed Date Verruca plantaris 02/25/2023 Family history of colon cancer in father 021 Overview (06/05/2020): Added automatically from request for surgery [id number] Personal history of colonic polyps 06/05/2020 Overview (06/05/2020): Added automatically from request for surgery [id number] Encounter for screening colonoscopy 06/05/2020 Overview (06/05/2020): Added automatically from request for surgery [id number] Social History Tobacco Use Types Packs/Day Years Used Date Smoking Tobacco: Never Smokeless Tobacco: Never AUDIT-C Answer Date Recorded Q1: How often do you have a drink containing alc ohol? 2-3 times a week 03/09/2023 Q2: How many drinks containi ng alcohol do you have on a typical day when you are drinking? 1 or 2 03/09/2023 Frequency of Binge Drinking Not on file 02/22 Personal Safety Answer Date Recorded Have you ever been in or are you currently in a harmful physical or emotional relationship or is someone making you feel afraid or unsafe? Denies 03/19/2023 Comments Unknown Sex and Gender Information Value Date Recorded Sex Assigned at Not on file Legal Sex Female 12:41 AM MARKETING BUDGET ANALYST Gender Identity Not on file Sexual Orientation Not on file Last Filed Vital Signs Vital Sign Reading Time Taken Comments Blood Pressure 115/73 03/19/2023 3:45 PM MARKETING BUDGET ANALYST Pulse 64 03/19/2023 3:45 PM MARKETING BUDGET ANALYST Temperature 36.9 C (98.4 F) 03/19/2023 3:45 PM MARKETING BUDGET ANALYST Respiratory Rate 18 03/19/2023 3:45 PM MARKETING BUDGET ANALYST Oxygen Saturation 100% 03/19/2023 3:45 PM MARKETING BUDGET ANALYST Inhaled Oxygen Concentration - - Weight 76.5 kg (168 lb 10.4 oz) 024 12:28 PM MARKETING BUDGET ANALYST Height 172.7 cm (5' 8 ) 03/19/2023 12:2 8 PM MARKETING BUDGET ANALYST Body Mass Index 25.64 03/19/2023 12:28 PM MARKETING BUDGET ANALYST Plan of Treatment Not on file Procedures Procedure Name Priority Date/Time Associated Diagnosis Comments COLONOSCOPY 07/15/2020 8:20 AM CDT from Last 3 Months or Most Recently Relevant to Health Maintenance Results * COLONOSCOPY (07/15/2020 8:20 AM CDT) Anatomical Region Laterality Modality Other Narrative Procedure Note Martinez Pineda MD - 07/15/2020 8:20 AM CDT [facility] Patient Name: Purnima Gonzalez Procedure Date: 07/15/2020 8:20 AM Date of : 1955 Admit Type: Outpatient Age: 64 Gender: Female Attending MD: Martinez Pineda M.D. Room: [facility] ENDOSCOPY ROOM 2 Note Status: Finalized Patient Profile: Refer to note in patient chart for documentation of history and physical. Procedure: Colonoscopy Indications: High risk colon cancer surveillance: Personalhistory of colonic polyps, Family history of colon cancerin a first-degree relative before age 60 years, Last colonoscopy: 2014 Referring MD: Rhina Simon MD Providers: Martinez Pineda M.D. Impression: - Hemorrhoids found on perianal exam. - The entire examined colon is normal. - No specimens collected. Recommendation: - Discharge patient to home. - Resume previous diet. - Continue present medications. - Repeat colonoscopy in 5 years for surveillance. - Return to primary care physician as previously scheduled. Medicines: Propofol per Anesthesia Complications: No immediate complications. Estimated Blood Loss: Estimated blood loss: none. Procedure: Pre-Anesthesia Assessment: - This assessment was completed [Time ofAssessment] prior to the administration of sedation. The benefits, risks and alternatives of theprocedure and sedation were discussed and informed consentwas obtained. All questions were answered. Please referto the signed informed consent document in the medical record. The bowel preparation used was Miralax and bisacodyl tablets via single dose instruction. The scope was passed under direct vision. TheColonoscope [id number] was introduced through the anus and advanced to the the cecum, identified by appendiceal orifice and ileocecal valve. The colonoscopy was performed without difficulty. The patient tolerated the procedure well. The qualityof the bowel preparation was excellent. Findings: Hemorrhoids were found on perianal exam. The colon (entire examined portion) appeared normal. Electronically signed by Martinez Pineda M.D. Martinez Pineda M.D. 07/15/2020 9:11:16 AM Number of Addenda: 0 Note Initiated On: 07/15/2020 8:20 AM Procedure Code(s): --- Professional --- G0105, Colorectal cancer screening; colonoscopy on individual at high risk Diagnosis Code(s): --- Professional --- Z80.0, Family history of malignant neoplasm of digestive organs K64.9, Unspecified hemorrhoids Z86.010, Personal history of colonic polyps CPT copyright 2019 [employer]. All rights reserved. The codes documented in this report are preliminary and upon line closer reviewmay be revised to meet current compliance requirements. Recognized by the [employer] for promoting quality in endoscopy Martinez Pineda MD ENDOSCOPY PROCEDURES Final Re sult from Last 3 Months or Most Recently Relevant to Health Maintenance Insurance [facility] ACCESS [place] [address] [place] [address] HEALTHCARE Advance Directives For more information, please contact: [phone] * Full Code (Latest Code Status on File) Date Activated Date Inactivated Comments 03/19/2023 2:53 PM 03/19/2023 7:53 PM * Full Code Date Activated Date Inactivated Comments 07/15/2020 8:22 AM 07/15/2020 1:59 PM Care Teams Head Housekeeper Relationship Specialty Start Date End Date Rhina Simon MD PCP - General 07/02/20 Krysta Del Rio DPM [address] [place] [id number] Consulting Physician Foot and Ankle Surg 03/19/23
--- OUTSIDE RECORDS SUMMARY | 2024-06-15 21:52 | XMS_ITS | Clinical Summary ---
Author Organization [facility] Address [address] [place] [address] Care Team Providers Care Certified Surgical Tech/First Assistant Name Role Phone Rhina Simon MD Primary Care Provider [phone] Social History Tobacco Use Types Packs/Day Years Used Date Smoking Tobacco: Never Assessed Comments Unknown Sex and Gender Information Value Date Recorded Sex Assigned at Not on file Legal Sex Female 12:12 PM CDT Gender Identity Not on file Sexual Orientation Not on file Plan of Treatment Health Maintenance Due Date Last Done Comments Colorectal Cancer Screening Colonoscopy (10 Years) 1955 Hepatitis C 1974 DTaP, Tdap and Td Vaccines (1 - Tdap) 07/31/1975 Mammogram Screening 1996 Pneumococcal Vaccine: 50+ Years (1 of 1 - PCV) 2006 Annual Medicare Wellness Visit 2021 Dexa Scan (General) 2021 COVID-19 Vaccine ( season) 2023 01/29/2023, 01/07/2022, 01/12/2021, Additional history exists RSV Immunization or 60+ Years (1 - 1-dose 75+ series) 07/31/2031 Zoster Vaccines Completed 07/11/2018, 03/30/2018 Meningococcal B Vaccine Aged Out No l onger eligible based on patient's age to complete this topic Meningococcal Vaccine Aged Out No bethel janusz eligible based on patient's age to complete this topic RSV Immunizations Under 20 Months Aged Out No longer eligible based on patient's age to complete this topic Insurance [employer] Care Teams Certified Surgical Tech/First Assistant Relationship Specialty Start Date End Date Rhina Simon MD [facility] [place] [address] PCP - General FAMILY PRACTICE 08/16/23
--- OUTSIDE RECORDS SUMMARY | 2024-06-15 21:52 | XMS_ITS | Clinical Summary ---
Author Organization [facility] Address [address] [place] [address] Care Team Providers Care Production Weigher Name Role Phone Rhina Simon MD Primary Care Provider + Krysta Del Rio DPM Unavailable [phone] Allergies No known active allergies Medications levothyroxine [...] (06/05/2020): Added automatically from request for surgery [id number] Personal history of colonic polyps 06/05/2020 Overview (06/05/2020): Added automatically from request for surgery [id number] Encounter for screening colonoscopy 06/05/2020 Overview (06/05/2020): Added automatically from request for surgery [id number] Surgical History Surgery Date Site/Laterality Comments COLONOSCOPY 6 yrs ago [facility] CERVICAL SPINE SURGERY plate placed in C3-C4, due to spinal stenosis PATELLA FRACTURE SURGERY Left MENISCUS SURGERY Bilateral Medical History Medical History Date Comments Hypothyroidism Motion sickness Vertigo Syncope and collapse Hx of, ECHO and MRI negative Social History Tobacco Use Types Packs/Day Years [...] on file Legal Sex Female 12:41 AM MECHANICAL ORDNANCE ASSEMBLER Gender Identity Not on file Sexual Orientation Not on file Obstetrics History Last Filed Vital Signs Vital Sign Reading Time Taken Comments Blood Pressure 115/73 03/19/2023 3:45 PM MECHANICAL ORDNANCE ASSEMBLER Pulse 64 03/19/2023 3:45 PM MECHANICAL ORDNANCE ASSEMBLER Temperature 36.9 C (98.4 F) 03/19/2023 3:45 PM MECHANICAL ORDNANCE ASSEMBLER Respiratory Rate 18 03/19/2023 3:45 PM MECHANICAL ORDNANCE ASSEMBLER Oxygen Saturation 100% 03/19/2023 3:45 PM MECHANICAL ORDNANCE ASSEMBLER Inhaled Oxygen Concentration - - Weight 76.5 kg (168 lb 10.4 oz) 024 12:28 PM MECHANICAL ORDNANCE ASSEMBLER Height 172.7 cm (5' 8 ) 03/19/2023 12:2 8 PM MECHANICAL ORDNANCE ASSEMBLER Body Mass Index 25.64 03/19/2023 12:28 PM MECHANICAL ORDNANCE ASSEMBLER Plan of Treatment Health Maintenance Due Date Last Done Comments Breast Cancer Screening-Mammogram 1955 Depression Screening 1955 Hepatitis C Screening 1955 Osteoporosis Screening-Bone Density Scan 1955 DTaP/Tdap/Td Vaccine (1 - Tdap) 07/31/1967 Pneumococcal vaccine 65+ (1 of 1 - PCV) 2006 Well Visit 65+ 2021 Covid-19 Vaccine (5 - 2023-2 5 season) 2023 01/07/2022, 01/12/2021, 05/24/2020, Additional history exists Fall Risk Assessment 02/26/2024 02/25/2023, 07/16/19 21 Influenza Vaccine (Season Ended) 2024 11/07/19 20 Colon Cancer Screening-Colonoscopy 07/15/20302020 Zoster Vaccine Completed 07/11/2018, 03/30/2018 Hepatitis B Screening Completed 10/11/2018 Procedures Procedure Name Priority Date/Time Associated Diagnosis Comments COLONOSCOPY 07/15/2020 8:20 AM CDT from Last 3 Months or Most Recently Relevant to Health Maintenance Results * COLONOSCOPY (07/15/2020 8:20 AM CDT) Anatomical Region Laterality Modality Other Narrative Procedure Note Martinez Pineda MD - 07/15/2020 8:20 AM CDT [facility] Patient Name: Purnima Gonzalez Procedure Date: 07/15/2020 8:20 AM Date of : 1955 Admit Type: Outpatient Age: 64 Gender: Female Attending MD: Martinez Pineda M.D. Room: [facility] ENDOSCOPY ROOM 2 Note Status: Finalized Patient [...] scope was passed under direct vision. TheColonoscope [id number] was introduced through the anus and advanced to the the cecum, identified by appendiceal orifice and ileocecal valve. The colonoscopy was performed without difficulty. The patient tolerated the procedure well. The qualityof the bowel preparation was excellent. Findings: Hemorrhoids were found on perianal exam. The colon (entire examined portion) appeared normal. Electronically signed by Martinez iPneda M.D. Martinez Pineda M.D. 07/15/2020 9:11:16 AM Number of Addenda: 0 Note Initiated On: 07/15/2020 8:20 AM Procedure Code(s): --- Professional --- G0105, Colorectal cancer screening; colonoscopy on individual at high risk Diagnosis Code(s): --- Professional --- Z80.0, Family history of malignant neoplasm of digestive organs K64.9, Unspecified hemorrhoids Z86.010, Personal history of colonic polyps CPT copyright 2019 [employer]. All rights reserved. The codes documented in this report are preliminary and upon directory clerk reviewmay be revised to meet current compliance requirements. Recognized by the [employer] G[employer] for promoting quality in endoscopy Martinez Pineda MD ENDOSCOPY PROCEDURES Final Re sult from Last 3 Months or Most Recently Relevant to Health Maintenance Insurance [facility] ACCESS CHOICE [facility] Address: [address] [place] [address] Advance Directives For more information, please contact: [phone] * Full Code (Latest Code Status on File) Date Activated Date Inactivated Comments 03/19/2023 2:53 PM 03/19/2023 7:53 PM * Full Code Date Activated Date Inactivated Comments 07/15/2020 8:22 AM 07/15/2020 1:59 PM Care Teams Production Weigher Relationship Specialty Start Date End Date Rhina Simon MD PCP - General 07/02/20 Krysta Del Rio DPM [address] [place] [address] Consulting Physician Foot and Ankle Surg 03/19/23
--- OUTSIDE RECORDS SUMMARY | 2024-06-15 21:53 | XMS_ITS | Clinical Summary ---
Author Organization [facility] Address [address] [place] [address] Phone Care Team Providers Care Microsoft Bi Architect Name Role Phone Rhina Simon MD Primary Care Provider [phone] Allergies No known active allergies Medications HYDROcodone-angie taminophen (NORCO) 5-325 mg Oral tablet Take 1 Tab by mouth every 4 hours as needed. Active levothyroxine (SYNTHROID) 125 mcg Oral tablet Take 50 mcg by mouth daily corporate banking officer. Active Glucosamine Sulfate 1,000 mg Oral Cap Take by mouth. Active calcium carbonate 1,000 mg Oral Tab Take by mouth 3 times daily with meals. Active cholecalciferol , Vitamin D3, (VITAMIN D3) 1,000 unit Oral Cap Take by mouth daily. Active polysaccharide iron complex (NIFEREX-150) 150 mg Oral capsule Take 150 mg by mouth 2 times daily. Active levothyroxine (SYNTHROID) 50 mcg Oral tablet Take 50 mcg by mouth daily with supper. Active diazepam (VALIUM) 5 mg Oral tablet Take 1 Tab by mouth every 8 hours as needed for Spasm. 90 Tab 0 09/12/2011 Active oxyCODONE-aceta minophen (PERCOCET) 5-325 mg Oral tablet Take 1 Tab by mouth every 4 hours as needed for Pain, Moderate (For Pain Scale 4-6). 90 Tab 0 09/12/2011 Active Family History Medical History Relation Name Comments Healthy Father Other Mother Relation Name Status Comments Father Alive Mother Social History Tobacco Use Types Packs/Day Years Used Date Smoking Tobacco: Former Cigarettes 0 09/01/1964 - 09/01/1989 Alcohol Use Standard Drinks/Week Comments Yes 0 (1 standard drink = 0.6 oz pur e alcohol) daily Comments Unknown Sex and Gender Information Value Date Recorded Sex Assigned at Not on file Legal Sex Female 6:10 AM BUSH REGENERATOR Gender Identity Not on file Sexual Orientation Not on file Occupation Industry Job Start Date Job End Date Not on file Not on file Not on file Not on file Not on file Not on file Not on file Not on file Last Filed Vital Signs Vital Sign Reading Time Taken Comments Blood Pressure 117/71 09/12/2011 8:00 AM CDT Pulse 81 09/12/2011 8:00 AM CDT Temperature 36.4 C (97.6 F) 09/12/2011 8:00 AM CDT Respiratory Rate 16 09/12/2011 8:00 AM CDT Oxygen Saturation 98% 09/12/2011 8:00 AM CDT Inhaled Oxygen Concentration - - Weight 71.2 kg (157 lb) 09/11/2011 10:20 AM CDT Height 172.7 cm (5' 8 ) 09/04/2011 3:33 PM CDT Body Mass Index 23.87 09/04/2011 3:33 PM CDT Plan of Treatment Health Maintenance Due Date Last Done Comments DTAP/TDAP/TD VACCINES (1 - Tdap) 07/31/1975 BREAST CANCER SCREENING 1996 COLORECTAL SCREENING 2001 Colorectal Cancer Screening 2001 FIT-DNA Q 3 years 2001 FIT/FOBT Q 1 year 2001 Flex Sig/CT Colonography Q 5 years 2001 PNEUMOCOCCAL VACCINE 50+ YEARS (1 of 1 - PCV) 07/31/19 07 ZOSTER VACCINE (1 of 2) 2006 OSTEOPOROSIS SCREENING 2021 INFLUENZA VACCINE (#1) 2023 RSV VACCINE (60+ or ) (1 - 1-dose 75+ series) 07/31/2031 Medical Devices Implanted Type Area Collections Rep Device Identifier Shelf Expiration Date Model / Serial / Lot Sealant Floseal 10ml [id number] - [id number] Implanted:Qty: 1 on 09/11/2011 by Forest Rodriguez MD at [facility] Biological N/A: Spine Cervical Anterior CORNE[employer]- [employer]OSCIENCE 01/22/2013 [id number] / / [id number] - Bone [employer] - 1 - Allgrft Spacer Acf 7mm [id number] Implanted:Qty: 1 on 09/11/2011 at [facility] Bone Spine Cervical Anterior MUSCULOSKELETAL TRANSPLANT FOU 04/06/2016 [id number] / [id number] / Plate Cslp Georgette Ang 27mm 450.153 - [id number] Implanted:Qty: 1 on 09/14/2011 at [facility] Plate N/A: Spine Cervical Anterior SYNTHES STRATEC 450.153 / / LOAD 45 Screw Xpnhead C Spine 4.0x14mm 487.044 - [id number] Implanted:Qty: 4 on 09/14/2011 at [facility] Screw N/A: Spine Cervical Anterior SYNTHES-STRATEC- SPINAL 487.044 / / LOAD 45 Screw Lock C Spine 1.8mm 497.78 - [id number] Implanted:Qty: 4 on 09/14/2011 at [facility] Screw N/A: Spine Cervical Anterior SYNTHES-STRATEC- SPINAL 497.78 / / LOAD 45 Advance Directives For more information, please contact: [phone] * Full Code (Latest Code Status on File) Date Activated Date Inactivated Comments 09/11/2011 8:27 PM 09/12/2011 3:57 PM * Full Code Date Activated Date Inactivated Comments 09/11/2011 12:22 PM 09/11/2011 8:27 PM * Full Code Date Activated Date Inactivated Comments 09/11/2011 10:21 AM 09/11/2011 12:22 PM * Full Code Date Activated Date Inactivated Comments 09/02/2011 2:45 PM 09/02/2011 8:37 PM Care Teams Microsoft Bi Architect Relationship Specialty Start Date End Date Rhina Simon MD PCP - General Family Practice 09/02/11
[2024-06-15] MEDS: HYDROmorphone HCL INJ (*CRX) 2 MG/ML VIAL 0.5 MG IV PUSH (22:08)
[2024-06-15] MEDS: SCOPOLAMINE 1 MG PATCH 1 PATCH TRANSDERM (22:08)
[2024-06-15] MEDS: ONDANSETRON INJ 4 MG/2 ML VIAL IV PUSH (22:08)
[2024-06-15 22:15] LABS: NT Pro B Type Natriuretic Pept 22 pg/mL (19.9-100); Troponin I < 0.012 ng/mL (0.000-0.034)
[2024-06-15] MEDS: ONDANSETRON INJ 4 MG/2 ML VIAL (23:17)
[2024-06-15 23:53] VITALS: BP 121/81; PULSE 64; RESP 17; O2SAT 93
[2024-06-15] MEDS: SODIUM CHLORIDE 0.9% IV 2,000 ML 999 ML IV CONT (23:55)
--- NOTE | 2024-06-16 00:16 | ED_ITS ---
HPI - General Adult General Chief complaint: Syncope Stated complaint: SYNCOPAL EPISODE, C/O MID BACK PAIN History of Present Illness HPI narrative: This is 68 female history vertigo presenting after syncopal event patient says she has not felt well all week. She was at her judaism she was not feeling well. She went to the restroom going to the bathroom she got and then felt like she was going to faint. She walked to the bathroom and then collapsed. EMS was called. Initially she was found have a BP of 60/palp. She was then brought to the hospital for evaluation. Moment patient is complaining pain in her right flank/back. She is unsure if this was caused during her fall. It is an achy pain does not radiate. The pain is exacerbated by movement and is pain free when sitting still. She is denying any fevers chills chest pain difficulty breathing abdominal pain or urinary symptoms. Related Data Allergies Allergy/AdvReac Type Severity Reaction Status Date / Time No Known Allergies Allergy Mild Verified 06/15/24 21:09 [facility] Past Medical History Medical History Tinnitus Olecranon bursitis of right elbow Iliotibial band syndrome of right side Peroneal tendinitis of left lower extremity Sciatica, right side Surgical History Surgical History H/O cervical spine surgery Hx of colonoscopy 5.24.21 negative. repeat in 5 years Family History Family History Father Family history of congestive heart failure Carcinoma of colon, Onset Age: 80 Grandparent Diabetes mellitus Family history of glaucoma Mother Patient's mother is Social History Social History Smoking packs per day: 0.1 Smoking cigarettes per day: 2.0 Years smoked: 8 Smoking pack-years: 0.80 Smoking status: Former smoker Smoking end date: 02/23/88 Alcohol intake: current Drinks per week: 9 Substance use: former Substance use type: marijuana Last use: gummies to help sleep, did not help so stopped Do You Feel Safe in your Home?: Yes Lack of Transportation: No Lack of Food: Never True Current Housing: I Have Housing Concerned About Future Housing: No Difficulty Paying Gas/Electric Bills: No Difficulty Paying for Meds: No Currently Unemployed: No Education: Master's Degree or Higher Difficulty w/ Childcare or Family Care: No Exam 2 Narrative: APPEARANCE: No apparent distress. Head: atraumatic. EYES: EOMI, NOSE: Atraumatic NECK/back: Tenderness over the right para thoracic muscles no midline tenderness RESPIRATORY: No increased rate of breathing CTAB CARDIOVASCULAR: RRR, no peripheral edema, +2 pulses in all extremities ABDOMINAL: Non-distended soft nontender guarding rebound MUSCULOSKELETAl: No obvious deformities NEURO: Alert. Moving 4/4 extremities SKIN:: Warm, dry. Normal color PSYCHIATRIC: Normal affect Course Vital Signs Vital signs: Vital Signs Temperature 97.8 F 06/15/24 20:59 Pulse Rate 59 L 06/15/24 20:59 Respiratory Rate 16 06/15/24 20:59 Blood Pressure 128/74 06/15/24 20:59 Pulse Oximetry 100 06/15/24 20:59 Oxygen Delivery Room Air 06/15/24 20:59 Temperature 97.8 F 06/15/24 20:59 Pulse Rate 64 06/15/24 23:53 Respiratory Rate 17 06/15/24 23:53 Blood Pressure 121/81 06/15/24 23:53 Pulse Oximetry 93 06/15/24 23:53 Oxygen Delivery Room Air 06/15/24 21:09 Medical Decision Making [facility] Narrative Medical decision making narrative: -Course: 68-year-old female presenting after a syncopal event. Laboratory studies including troponin x2, EKG, CTA chest abdomen pelvis and CT head were negative. No dysrhythmias while insert course for workup. Patient received fluids and antiemetics for her nausea. Patient was monitored with no recurrence of her events during the ED. On re-evaluation she is resting comfortably. Patient's syncope occurred after using restroom and was proceeded a prodrome. Likely vasovagal in nature. Back pain appears to be musculoskeletal as she has tenderness over the parathoracic muscles and the pain is exacerbated by movement. -DDX includes but is not limited to: Vasovagal syncope PE, dissection, dehydration, cardiac syncope Independent EKG interpretation: Rhythm [sinus], Rate [60], [place] -[normal], CA -[normal], QRS [narrow], QTC [normal], T waves -[negative for concerning inversions], ST Segments - [Negative for concerning elevations] Final interpretations: [Normal Sinus Rhythm] Vital Signs Vital Signs: Vital Signs Temperature 97.8 F 06/15/24 20:59 Pulse Rate 59 L 06/15/24 20:59 Respiratory Rate 16 06/15/24 20:59 Blood Pressure 128/74 06/15/24 20:59 Pulse Oximetry 100 06/15/24 20:59 Oxygen Delivery Room Air 06/15/24 20:59 Temperature 97.8 F 06/15/24 20:59 Pulse Rate 64 06/15/24 23:53 Respiratory Rate 17 06/15/24 23:53 Blood Pressure 121/81 06/15/24 23:53 Pulse Oximetry 93 06/15/24 23:53 Oxygen Delivery Room Air 06/15/24 21:09 Lab Data 06/15/24 21:30 06/15/24 21:30 Labs: Lab Results 06/15/24 Range/Units 21:30 WBC 6.4 (4.5-10.0) K/mm3 RBC 4.17 L (4.2-5.4) M/mm3 Hgb 12.3 (12.0-15.0) g/dL Hct 36.5 L (37.0-47.0) % MCV 87.5 (80-100) fl MCH 29.5 (26-34) pg MCHC 33.7 (32-36) g/dl RDW 12.2 (11.5-14.5) % Plt Count 221 (150-375) k/mm3 MPV 8.8 (7.4-10.4) fl Immature Gran % (Auto) 0.3 (0-0.5) % Neut % (Auto) 56.8 (45.5-73.1) % Lymph % (Auto) 32.3 (18.3-44.2) % [place] % (Auto) 8.8 H (2.6-8.5) % Eos % (Auto) 1.3 (0-4.4) % Baso % (Auto) 0.5 (0.2-1.2) % Lymph # (Auto) 2.07 (0.9-3.2) K/mm3 [place] # (Auto) 0.6 (0.1-0.6) K/mm3 Eos # (Auto) 0.1 (0-0.3) K/mm3 Baso # (Auto) 0.0 (0.0-0.1) K/mm3 Abs Immat Gran (auto) 0.02 (0.00-0.031) K/mm3 Absolute Neuts (auto) 3.6 (1.3-6.7) K/mm3 Absolute Nucleated RBC 0.000 (0.0-0.012) K/mm3 Nucleated RBC % 0.0 (0.0-0.2) % Sodium 141 (137-145) mmol/L Potassium 3.6 (3.4-5.0) mmol/L Chloride 105 (98-107) mmol/L Carbon Dioxide 26 (22-30) mmol/L Anion Gap 10 (4-12) mmol/L BUN 17 (7-17) mg/dL Creatinine 0.88 (0.7-1.0) mg/dL Estim Creat Clear Calc 55 ml/min Estimated GFR > 60 (59 - ) Glucose 117 H (65-110) mg/dL Calcium 8.5 (8.4-10.2) mg/dL Total Bilirubin 0.3 (0.2-1.3) mg/dL AST 19 (14-36) U/L ALT 16 (6-35) U/L Alkaline Phosphatase 47 (38-126) U/L Troponin I < 0.012 (0.000-0.034) ng/mL NT-Pro-B Natriuret Pep 22 (19.9-100) pg/mL Total Protein 6.0 L (6.3-8.2) g/dL Albumin 3.9 (3.5-5.1) g/dL Discharge Plan Discharge Clinical Impression: Syncope and collapse, Back pain Patient Disposition: Home Condition: Stable Instructions: Antibiotic Form, Syncope (DC) Additional Instructions: You were seen in the emergency department after a syncopal event. Please make sure that you are drinking plenty of fluids. If you feel that you are going to faint try to sit into a chair and put her head between her legs or laid down on the ground. You can use Motrin Tylenol and Robaxin for your back pain. If you develop any new or worsening symptoms please return to the ED for re-evaluation. Patient Language: Iranian Prescriptions: New ibuprofen 800 mg tablet 800 mg PO TID PRN (Reason: pain) 7 Days Qty: 21 0RF acetaminophen 500 mg tablet 1,000 mg PO TID PRN (Reason: otilia) 7 Days Qty: 42 0RF methocarbamol 750 mg tablet 1,500 mg PO TID Qty: 42 0RF No Action clotrimazole-betamethasone 1-0.05 % cream 1 applic topical BID Qty: 45 0RF alprazolam 0.25 mg tablet 0.25 mg PO QHS PRN (Reason: sleep) Qty: 30 3RF levothyroxine 50 mcg tablet See Rx Instructions .ROUTE .COMPLEX Qty: 90 1RF Dose Instruction: TAKE 1 TABLET BY MOUTH EVERY DAY Rx Instructions: TAKE 1 TABLET BY MOUTH EVERY DAY Follow-up/Referrals: Rhina Simon MD [Primary Care Provider] -
[2024-06-16 01:00] LABS: Troponin I < 0.012 ng/mL (0.000-0.034)
[2024-06-16 01:29] VITALS: BP 126/86; PULSE 67; RESP 16; O2SAT 99
== END 2024-06-16 01:47 | disposition home or self-care (01) ==
PROVIDERS: Emergency Provider Emergency Medicine; PCP Family Medicine
DX: R55 Syncope and collapse (principal); M54.9 Dorsalgia, unspecified; Z87.891 Personal history of nicotine dependence; Z79.899 Other long term (current) drug therapy; R94.31 Abnormal electrocardiogram [ECG] [EKG]
CPT/HCPCS: 36415; 70450; 71045; 71275; 74174; 80053; 83880; 84484; 85025; 93005; 96361; 96374; 96375; 96376; 99284; A9270; J1171; J2405; J7030; Q9967